=== PATIENT | male | born 1965 | race American Indian/Alaskan Native ===

== ENCOUNTER 2017-12-11 15:11 | Emergency (ER) | payer SELFPAY ==
[2017-12-11 15:37] VITALS: BP 146/98
[2017-12-11] MEDS ORDERED: ZOFRAN ODT PO ONE (15:59)
--- NOTE | 2017-12-11 16:05 | Emergency Department Report ---
Vomiting/Diarrhea - HPI Chief Complaint: Nausea/Vomiting/Diarrhea Stated Complaint: VOMITING Time Seen by Provider: 12/11/17 15:52 Duration: 1 Day Severity: mild Nausea/Vomiting Severity: Mild Diarrhea Severity: None Pain Severity: None Symptoms: Yes Able to Tolerate Fluids, No Watery Diarrhea, No Bloody diarrhea, No Fever, No Recent Unusual Foods, No Recent Untreated Water, No Recent use of Antibiotics, No Family w/ Similar Symptoms, No Contacts w/ Similar Symptoms, No Rash, No Hematuria, No Recent URI Symptoms Other History: This is a 51-year-old male nontoxic, well nourished in appearance , no acute signs of distress presents to the ED with c/o of nausea and vomiting x1 day. Patient stated he was eating seafood last night and then developed these symptoms. Patient stated that when he eats seafood he develops this. Patient denies any abdominal pain or back pain. Patient stated he was at work and went home today and had chicken soup and chintan arline and stated symptoms has resolved. Patient stated last vomit which consistent with food was this morning at work. Patient deneis any chest pain, shortness of breath, bowel pain, numbness, tingling, headache, stiff neck, back pain or urinary symptoms. Patient denies any allergies or significant past medical history. ED Review of Systems ROS: Stated complaint: VOMITING Other details as noted in HPI Constitutional: denies: chills, fever Eyes: denies: eye pain, eye discharge, vision change ENT: denies: ear pain, throat pain Respiratory: denies: cough, shortness of breath, wheezing Cardiovascular: denies: chest pain, palpitations Endocrine: no symptoms reported Gastrointestinal: nausea, vomiting. denies: abdominal pain, diarrhea, constipation Genitourinary: denies: urgency, dysuria Musculoskeletal: denies: back pain, joint swelling, arthralgia Skin: denies: rash, lesions Neurological: denies: headache, weakness, paresthesias Psychiatric: denies: anxiety, depression Hematological/Lymphatic: denies: easy bleeding, easy bruising ED Past Medical Hx - Past Medical History Additional medical history: pneumonia - Social History Smoking Status: Current Every Day Smoker Substance Use Type: Alcohol - Medications Home Medications: Home Medications Medication Instructions Recorded Confirmed Last Taken Type HYDROcodone/APAP 5-325 [[place] 1 each PO Q6HR PRN #10 tablet 05/31/16 Unknown Rx 5/325] Ibuprofen [Motrin] 600 mg PO Q8H PRN #20 tablet 05/31/16 Unknown Rx Azithromycin [Zithromax Z-ROSALVA] 250 mg PO DAILY #6 tablet 12/11/17 Unknown Rx Ondansetron [Zofran Odt] 4 mg PO Q8H PRN #10 tab.rapdis 12/11/17 Unknown Rx Vomiting Diarrhea Exam - Exam General: Vital signs noted. No distress. Alert and acting appropriately. GENERAL: The patient is a well-developed, well-nourished in no apparent distress. Patient is alert and acting appropriately for age. Alert and oriented 3, no apparent distress, normal gait, atraumatic. HEENT: Head is normocephalic and atraumatic. PERRL, Extraocular muscles are intact. Pupils are equal, round, and reactive to light and accommodation. Nares appeared normal. Mouth is well hydrated and without lesions. Mucous membranes are moist. Posterior pharynx clear of any exudate or lesions. Mouth is well hydrated and without lesions. Tonsils not erythematous or swollen. Uvula midline. Tongue elevated. Mucous members are moist. Posterior pharynx clear, no exudate or lesions. Patent airways. NECK: Supple. No carotid bruits. No lymphadenopathy or thyromegaly.nontender. No meningitic signs are noted. LUNGS: Clear to auscultation. Non labor breathing. No intercostal retractions. Symmetrical with respiration, no wheezing, no rales, or crackles. HEART: Regular rate and rhythm without murmur, rubs or gallops. No reproducible. S1, S2 present, regular rate and rhythm without murmur, no rubs, no gallops. ABDOMEN: Soft, nontender, and nondistended. Positive bowel sounds. No hepatosplenomegaly was noted. No guarding or rebound tenderness, negative epigastric bruit. Negative psoas sign, negative rashid sign, negative McBurneys sign EXTREMITIES: Without any cyanosis, clubbing, rash, lesions or edema. Peripheral pulses intact. Capillary refill less than 2 seconds. Full range of motion bilaterally. NEUROLOGIC: Cranial nerves II through XII are grossly intact. Alert and oriented x 3. Normal gait. Symmetrical strength and sensation. Reflexes 2+ throughout. Cerebellar testing normal. GCS score of 15. PSYCHIATRIC: Normal affect with no suicidal or homicidal ideations. HEENT: Yes Moist Mucous Membranes, No Pharyngeal Erythema, No Pharyngeal Exudates, No Rhinorrhea, No Conjuctival Injection, No Frontal Tenderness, No Maxillary Tenderness Neck: No Adenopathy, No Rigidity Lungs: Yes Clear Lung Sounds, Yes Good Air Exchange, No Wheezes, No Stridor, No Cough, No Nasal Flaring, No Retractions, No Use of Accessory Muscles Heart exam: Regular: Yes, Murmur: No, Tachycardia: No Abdomen: Tenderness: No, Peritoneal Signs: No, Distention: No, Hyperactive Bowel sounds: No Skin exam: Rash: No, Edema: No, Normal turgor: Yes Neurologic: Alert and oriented, no deficits. Musculoskeletal: Unremarkable. ED Course Vital Signs 12/11/17 15:34 Temperature 99.3 F Pulse Rate 110 H Respiratory 18 Rate Blood Pressure 146/98 O2 Sat by Pulse 98 Oximetry - Reevaluation(s) Reevaluation #1: 12/11/17 16:04 Patient is speaking in full sentences with no signs of distress noted. ED Medical Decision Making - Lab Data Result diagrams: 12/11/17 16:34 12/11/17 16:34 - Medical Decision Making This is a 51-year-old male that presents with nausea and vomiting. Patient stable was examined by me. X-ray series of abdomen has been obtained and dictated by the radiologist. Patient is notified of the x-ray report with no question by the patient. Labs are obtained. He received Zofran and a by mouth challenge has been obtained and patient tolerated well with no nausea or vomiting. Vital signs are stable. Upon examination there is no abdominal tenderness or distention. Normal bowel sounds. Patient is discharged with Zofran. Patient was instructed to Follow-up with a primary care doctor in 3-5 days or if symptoms worsen and continue return to emergency room as soon as possible. At time of discharge, the patient does not seem toxic or ill in appearance. No acute signs of distress noted. Patient agrees to discharge treatment plan of care. No further questions noted by the patient. Critical care attestation.: If time is entered above; I have spent that time in minutes in the direct care of this critically ill patient, excluding procedure time. ED Disposition Clinical Impression: Nausea & vomiting Qualifiers: Vomiting type: unspecified Vomiting Intractability: non-intractable Qualified Code(s): R11.2 - Nausea with vomiting, unspecified Disposition: DC-01 TO HOME OR SELFCARE Is pt being admited?: No Does the pt Need Aspirin: No Condition: Stable Instructions: Ondansetron (By mouth), Acute Nausea and Vomiting (ED) Additional Instructions: Follow-up with a primary care doctor in 3-5 days or if symptoms worsen and continue return to emergency room as soon as possible. Prescriptions: Azithromycin [Zithromax Z-ROSALVA] 250 mg PO DAILY #6 tablet Ondansetron [Zofran Odt] 4 mg PO Q8H PRN #10 tab.rapdis PRN Reason: nausea Referrals: PRIMARY CARE,MD [Primary Care Provider] - 3-5 Days MARIA ELENA READ MD [Staff Physician] - 3-5 Days [facility] [Outside] - 3-5 Days [facility] [Outside] - 3-5 Days Forms: Work/School Release Form(ED)
[2017-12-11 17:06] LABS: Basophils # (Auto) 0.1 K/mm3 (0.0-0.1); Basophils % (Auto) 0.7 % (0.0-1.8); Eosinophils # (Auto) 0.2 K/mm3 (0.0-0.4); Eosinophils % (Auto) 2.5 % (0.0-4.3); Hematocrit 42.9 % (35.5-45.6); Hemoglobin 14.4 gm/dl (11.8-15.2); Lymphocytes # (Auto) 1.4 K/mm3 (1.2-5.4); Lymphocytes % (Auto) 17.4 % (13.4-35.0); Mean Corpuscular HGB Conc 34 % (32-34); Mean Corpuscular Hemoglobin 33 pg (28-32); Mean Corpuscular Volume 99 fl (84-94); Mean Platelet Volume 5.9 fl (6-12); Monocytes # (Auto) 1.1 K/mm3 (0.0-0.8); Monocytes % (Auto) 13.8 % (0.0-7.3); Platelet Count 421 K/mm3 (140-440); Red Blood Count 4.32 M/mm3 (3.65-5.03); Red Cell Distribution Width 17.4 % (13.2-15.2)
[2017-12-11 17:11] LABS: BUN/Creatinine Ratio 8; Blood Urea Nitrogen 5 mg/dL (9-20); Hemolysis Index 8
--- NOTE | 2017-12-11 17:36 | XRay Report ---
FINAL REPORT EXAM: XR ABD SERIES W CXR 1V HISTORY: abd pain TECHNIQUE: PA view of the chest and supine and erect views of the abdomen PRIORS: None. FINDINGS: Chest: There is alveolar consolidation in the right upper lobe. I am uncertain whether this represents infection or mass. There is extensive pleural thickening in the right apex extending to the lateral upper lung. Underlying interstitial prominence in the lung bases is noted. Cardiac and mediastinal silhouettes are unremarkable. Bony structures are intact. Abdomen: The bowel gas pattern is nonspecific. No free air is identified. Soft tissues have no evidence for mass shadows or calcifications. The bony structures are intact. IMPRESSION: 1. Alveolar consolidation right upper lobe suspected to be infection although mass is included in the differential. Extensive pleural thickening or loculated pleural fluid in the right apex and lateral upper right lung 2. Nonspecific, nonobstructive bowel gas pattern with no acute process noted.
== END 2017-12-11 17:49 | disposition home or self-care (01) ==
LOC: ED 15:11
DX: R11.2 Nausea with vomiting, unspecified (principal); F17.200 Nicotine dependence, unspecified, uncomplicated
CPT/HCPCS: 36415; 74022; 80048; 85025; 99283; Q0162

== ENCOUNTER 2018-04-17 18:53 | Inpatient (IN) | payer OTHER ==
[2018-04-17] MEDS ORDERED: NACL 0.9% 1000 ML 2,500 ML IV ONE (19:31)
[2018-04-17] MEDS: NACL 0.9% 1000 ML 1,000 ML IV ONE ×2 (19:35→19:55)
[2018-04-17] MEDS ORDERED: LEVAQUIN 500MG/100ML 500 MG/100 ML BAG IV ONE (19:52)
[2018-04-17] MEDS ORDERED: ZOFRAN IV ONE (19:53)
[2018-04-17] MEDS ORDERED: MORPHINE IV ONE (19:53)
[2018-04-17] MEDS ORDERED: MORPHINE ONE ×2 (20:01→20:02)
--- NOTE | 2018-04-17 20:19 | Emergency Department Report ---
HPI - General Chief Complaint: Chest Pain Time Seen by Provider: 04/17/18 19:32 - HPI HPI: The patient is a 52-year-old male who presents for evaluation of chest pain and cough. The patient reports chest pain with coughing for the past 2 days. He states his his pain is left-sided in location, aching in quality, exacerbated with coughing, improved at rest. The patient denies neck pain or neck stiffness , parasthesias, dyspnea, hemoptysis, palpitations, dizziness, syncope, unilateral leg swelling, calf muscle pain. ED Past Medical Hx - Past Medical History Previous Medical History?: Yes Additional medical history: pneumonia - Social History Smoking Status: Current Every Day Smoker Substance Use Type: Alcohol - Medications Home Medications: Home Medications Medication Instructions Recorded Confirmed Last Taken Type HYDROcodone/APAP 5-325 [[place] 1 each PO Q6HR PRN #10 tablet 05/31/16 Unknown Rx 5/325] Ibuprofen [Motrin] 600 mg PO Q8H PRN #20 tablet 05/31/16 Unknown Rx Azithromycin [Zithromax Z-ROSALVA] 250 mg PO DAILY #6 tablet 12/11/17 Unknown Rx Ondansetron [Zofran Odt] 4 mg PO Q8H PRN #10 tab.rapdis 12/11/17 Unknown Rx ED Review of Systems ROS: Stated complaint: CHEST PAIN Other details as noted in HPI Constitutional: denies: fever ENT: denies: throat or neck pain Respiratory: reports cough denies: shortness of breath Cardiovascular: denies: chest pain Endocrine: denies unexplained weight loss or gain Gastrointestinal: denies: abdominal pain, nausea Genitourinary: denies: dysuria Musculoskeletal: denies: leg swelling Skin: denies: rash Neurological: denies: headache Hematological/Lymphatic: denies: easy bleeding or easy bruising Psych: denies sadness or hopelessness Physical Exam - Physical Exam Vital Signs: Vital Signs 04/17/18 04/17/18 04/17/18 19:14 19:34 19:45 Temperature 100.4 F H Pulse Rate 114 H 114 H 107 H Respiratory 26 H 35 H 57 H Rate Blood Pressure 137/84 133/89 O2 Sat by Pulse 94 94 Oximetry Physical Exam: General: well-nourished, well-developed, no acute distress Head: Normocephalic, atraumatic Eyes: normal sclera ENT: Nasal congestion present Neck: trachea midline, neck supple, No neck stiffness, no cervical adenopathy Respiratory: Breath sounds equal bilaterally, no wheezing, rales, or rhonchi Cardio: S1 and S2 present, no murmurs, rubs, gallops, capillary refill is brisk Abdomen: Normoactive bowel sounds, soft abdomen, no rigidity, no guarding or rebound tenderness Chest WALL/Back: No tenderness to palpation of the chest wall, no bruising no CVA tenderness with percussion Musc: No pitting edema Skin: No rash Neuro: no facial drooping, normal speech Psych: Normal affect ED Course Vital Signs 04/17/18 04/17/18 04/17/18 19:14 19:34 19:45 Temperature 100.4 F H Pulse Rate 114 H 114 H 107 H Respiratory 26 H 35 H 57 H Rate Blood Pressure 137/84 133/89 O2 Sat by Pulse 94 94 Oximetry ED Medical Decision Making - Lab Data Result diagrams: 04/17/18 19:34 04/17/18 21:38 - Medical Decision Making The patient was seen and examined by myself. The patient is placed on a phototypesetting equipment monitor and continuous pulse ox. On initial evaluation, the patient was found to be in no distress nontoxic in overall appearance, although with low- grade temperature and tachycardic. EKG was negative for findings suggestive of acute cardiac infarct. Labs and imaging are obtained. Chest x-ray exhibits left lower lobe and right upper lobe infiltrates with associated bibasilar pleural effusions. The patient is given normal saline fluid bolus for treatment of his dehydration, Tylenol for his fever, cough medicine, and IV Levaquin for treatment of his suspected infection. Lab results revealed elevated WBC 17. The on-call hospitalist service was contacted. They agreed to admit the patient for further treatment and close monitoring. The ED admit order was placed. The patient was admitted in guarded condition. Critical care attestation.: If time is entered above; I have spent that time in minutes in the direct care of this critically ill patient, excluding procedure time. ED Disposition Clinical Impression: Dehydration, Acute chest pain Pneumonia Qualifiers: Pneumonia type: due to unspecified organism Laterality: bilateral Lung location : lower lobe of lung Qualified Code(s): J18.1 - Lobar pneumonia, unspecified organism Disposition: DC-09 OP ADMIT IP TO THIS HOSP Is pt being admited?: Yes Does the pt Need Aspirin: Yes Condition: Serious Instructions: Chest Pain (ED), Bacterial Pneumonia (ED) Referrals: PRIMARY CARE, [Primary Care Provider] - 3-5 Days Time of Disposition: 21:15
[2018-04-17 20:25] LABS: Basophils % (Auto) 0.2 % (0.0-1.8); Eosinophils % (Auto) 0.1 % (0.0-4.3); Hematocrit 50.5 % (35.5-45.6); Hemoglobin 17.2 gm/dl (11.8-15.2); Lymphocytes # (Auto) 0.9 K/mm3 (1.2-5.4); Lymphocytes % (Auto) 5.5 % (13.4-35.0); Mean Corpuscular HGB Conc 34 % (32-34); Mean Corpuscular Hemoglobin 36 pg (28-32); Mean Corpuscular Volume 106 fl (84-94); Monocytes # (Auto) 2.2 K/mm3 (0.0-0.8); Platelet Count 433 K/mm3 (140-440); Red Blood Count 4.78 M/mm3 (3.65-5.03)
[2018-04-17] MEDS ORDERED: TYLENOL PO ONE (20:46)
[2018-04-17] MEDS ORDERED: BABY ASPIRIN PO ONE (21:16)
--- NOTE | 2018-04-17 21:19 | XRay Report ---
FINAL REPORT EXAM: XR CHEST 1V AP HISTORY: chest pain TECHNIQUE: Frontal portable view of the chest Comparison: Chest x-ray dated December 11, 2017 FINDINGS: There continues to be diffuse bilateral prominence of the interstitial markings with patchy areas of bilateral pulmonary consolidation. The degree of pulmonary consolidation in the left lung base has increased in the interval. There is no evidence of pneumothorax. There continues to be evidence of a loculated pleural fluid collection in the right lung apex which is decreased in size in the interval. The cardiomediastinal silhouette is normal in appearance. The bony structures are unremarkable. IMPRESSION: 1. Persistent bilateral interstitial and airspace process with interval increase in airspace process left lung base. 2. Persistent loculated pleural effusion right lung apex which has decreased in size in the interval. If further imaging is required, CT chest may be helpful.
[2018-04-17 22:07] LABS: BUN/Creatinine Ratio 13; Blood Urea Nitrogen 8 mg/dL (9-20); Calcium 7.4 mg/dL (8.4-10.2)
[2018-04-17 22:08] LABS: Alanine Aminotransferase 5 units/L (7-56); Albumin 2.9 g/dL (3.9-5); Hemolysis Index 41; Lipase 30 units/L (13-60)
[2018-04-17] MEDS ORDERED: ZOFRAN IV PRN (23:02)
[2018-04-17] MEDS ORDERED: SODIUM CHLORIDE FLUSH SYRINGE 10 ML IV PRN (23:02)
[2018-04-17] MEDS ORDERED: TYLENOL PO PRN (23:02)
[2018-04-17] MEDS ORDERED: PROVENTIL IH PRN (23:02)
--- NOTE | 2018-04-17 23:08 | History and Physical Report ---
History of Present Illness Date of examination: 04/17/18 History of present illness: 52 -year-old man with a known medical history calcium emergency room with complaint of cough productive of yellow phlegm, fever. Complaining of pain in his left chest with breathing and coughing. Denies any weight loss. He was treated for pneumonia in November for which she completed antibiotics Review of systems Constitutional: no weight loss, chills, fever Ears, eyes, nose, mouth and throat: no nasal congestion, no nasal discharge, no sinus pressure, no vision change, no red eye. Neck: No neck pain or rigidity. Cardiovascular: no chest pain, palpitations Respiratory:+cough, shortness of breath Gastrointestinal: no abdominal pain hematochezia Genitourinary : no frequency , no hematuria Musculoskeletal: no joint swelling or muscle ache Integumentary: no rash, no pruritis Neurological: no parathesias, no numbness, no focal weakness Endocrine: no cold or heat intolerance, no polyuria or polydipsia Hematologic/Lymphatic: no easy bruising, no easy bleeding, no gland swelling Allergic/Immunologic: no urticaria, no angioedema. PAST MEDICAL HISTORY: None PAST SURGICAL HISTORY: None SOCIAL HISTORY:+ alcohol, no drugs, smokes half pack a day FAMILY HISTORY: Hypertension Medications and Allergies Allergies Allergy/AdvReac Type Severity Reaction Status Date / Time No Known Allergies Allergy Unverified 05/31/16 10:08 Home Medications Medication Instructions Recorded Confirmed Last Taken Type HYDROcodone/APAP 5-325 [[place] 1 each PO Q6HR PRN #10 tablet 05/31/16 Unknown Rx 5/325] Ibuprofen [Motrin] 600 mg PO Q8H PRN #20 tablet 05/31/16 Unknown Rx Azithromycin [Zithromax Z-ROSALVA] 250 mg PO DAILY #6 tablet 12/11/17 Unknown Rx Ondansetron [Zofran Odt] 4 mg PO Q8H PRN #10 tab.rapdis 12/11/17 Unknown Rx Active Meds: Active Medications Acetaminophen (Tylenol) 650 mg PO Q4H PRN PRN Reason: Pain MILD(1-3)/Fever >100.5/JORGE Albuterol (Proventil) 2.5 mg IH Q3HRT PRN PRN Reason: Shortness Of Breath Azithromycin 500 mg/ Sodium (Chloride) 250 mls @ 250 mls/hr IV Q24H GABY Exam - Physical Exam Narrative exam: Gen. appearance: Patient lying in bed, no apparent distress HEENT: Normocephalic, atraumatic, pupils equally round and reactive to light, extraocular movement intact, and no sclericterus,. No JVD or thyromegaly or nodule,neck supple, no carotid bruit ,mucous membranes moist, no exudate or erythema Heart: S1, S2, regular rate and rhythm Lungs: Crackles bilaterally, breathing comfortable Abdomen: Positive bowel sounds, non-tender, nondistended, no organomegaly Extremity:no edema cyanosis, clubbing Skin: no rash, dry, warm Neuro: Oriented 3, cranial nerves II-12 intact, speech is fluent, motor and sensory intact - Constitutional Vitals: Temp Pulse Resp BP Pulse Ox 100.4 F H 107 H 57 H 133/89 94 04/17/18 19:14 04/17/18 19:45 04/17/18 19:45 04/17/18 19:45 04/17/18 19:45 Results - Labs CBC & Chem 7: 04/17/18 19:34 04/17/18 21:38 Labs: Abnormal lab results 04/17/18 04/17/18 Range/Units 19:34 21:38 WBC 17.3 H (4.5-11.0) K/mm3 Hgb 17.2 H (11.8-15.2) gm/dl Hct 50.5 H (35.5-45.6) % MCV 106 H (84-94) fl MCH 36 H (28-32) pg RDW 20.0 H (13.2-15.2) % Lymph % (Auto) 5.5 L (13.4-35.0) % [place] % (Auto) 13.0 H (0.0-7.3) % Lymph # 0.9 L (1.2-5.4) K/mm3 [place] # 2.2 H (0.0-0.8) K/mm3 Seg Neutrophils % 81.2 H (40.0-70.0) % Seg Neutrophils # 14.0 H (1.8-7.7) K/mm3 Sodium 135 L (137-145) mmol/L Potassium 3.3 L (3.6-5.0) mmol/L BUN 8 L (9-20) mg/dL Creatinine 0.6 L (0.8-1.5) mg/dL Glucose 105 H (75-100) mg/dL Calcium 7.4 L (8.4-10.2) mg/dL Total Bilirubin 1.50 H (0.1-1.2) mg/dL ALT 5 L (7-56) units/L Albumin 2.9 L (3.9-5) g/dL - Imaging and Cardiology Chest x-ray: image reviewed Abdominal x-ray: report reviewed Assessment and Plan Assessment Sepsis Bilateral community-acquired pneumonia Plan Admit medicine Start IV Rocephin, Zithromax and follow cultures Obtain CAT scan of the chest DVT prophylaxis
[2018-04-18] MEDS: ZITHROMAX 500 MG in NACL 0.9% 250ML 250 ML IV SCH ×2 (00:09→22:13)
[2018-04-18] MEDS: ROCEPHIN/NS 1 GM/50 ML 1 GM/50 ML BAG IV SCH ×2 (00:09→22:14)
[2018-04-18] MEDS ORDERED: BABY ASPIRIN ONE (00:16)
--- NOTE | 2018-04-18 00:16 | Cat Scan Report ---
FINAL REPORT EXAM: CT CHEST W CON HISTORY: persistent pna TECHNIQUE: Routine axial imaging was obtained of the thorax following the intravenous injection of 100 cc of Omnipaque 350. Sagittal and coronal reconstructions were reviewed. FINDINGS: The lungs reveal generalized emphysematous changes. There is bullous changes in the right apex with patchy airspace disease and pleural thickening in the right apex. The lungs reveal extensive infiltrates throughout both lower lobes and to lesser extent in the lingula and right middle lobe. Underlying congestion cannot be excluded. The heart size is normal. Pericardial fluid is not seen. The thoracic aorta is normal in caliber. There is bilateral mild hilar adenopathy. Additional subcarinal lymphadenopathy is also noted. Pleural fluid is not seen. In the upper abdomen the adrenal glands appear normal. At the thoracic inlet the thyroid gland appears normal. The skeletal structures do not show any acute changes. IMPRESSION: COPD with infiltrates in both lower lobes and to lesser extent in the lingula and right middle lobe compatible with pneumonia. Localized airspace disease with bullous changes in the right apex also noted. Bilateral hilar and subcarinal space lymphadenopathy. No evidence of pleural effusion. Underlying congestion cannot be excluded.
[2018-04-18 05:37] LABS: Bilirubin,Urine NEG (Negative); Color,Urine Yellow (Yellow)
[2018-04-18 05:38] LABS: Blood,Urine NEG (Negative); Mucus,Urine FEW /HPF; Protein,Urine <15 mg/dL mg/dL (Negative); Urobilinogen,Urine < 2.0 mg/dL (<2.0)
[2018-04-18 06:42] LABS: Basophils % (Auto) 0.2 % (0.0-1.8); Eosinophils # (Auto) 0.1 K/mm3 (0.0-0.4); Eosinophils % (Auto) 0.4 % (0.0-4.3); Hematocrit 46.6 % (35.5-45.6); Hemoglobin 15.6 gm/dl (11.8-15.2); Lymphocytes # (Auto) 1.3 K/mm3 (1.2-5.4); Lymphocytes % (Auto) 9.1 % (13.4-35.0); Mean Corpuscular HGB Conc 34 % (32-34); Mean Corpuscular Hemoglobin 36 pg (28-32); Mean Corpuscular Volume 107 fl (84-94); Monocytes % (Auto) 14.3 % (0.0-7.3); Platelet Count 360 K/mm3 (140-440); Red Blood Count 4.34 M/mm3 (3.65-5.03)
[2018-04-18 06:58] LABS: BUN/Creatinine Ratio 9; Blood Urea Nitrogen 6 mg/dL (9-20); Calcium 8.1 mg/dL (8.4-10.2); Hemolysis Index 4
[2018-04-18] MEDS ORDERED: LOVENOX SUB-Q SCH (10:00)
[2018-04-18] MEDS: PERCOCET 5/325 PO PRN ×2 (10:11→18:51)
[2018-04-18] MEDS: SODIUM CHLORIDE FLUSH SYRINGE 10 ML IV SCH ×2 (10:12→22:14)
[2018-04-18] MEDS: LOVENOX SUB-Q SCH (10:12)
[2018-04-18] MEDS ORDERED: PNEUMOVAX 23 IM ONE (12:00)
--- NOTE | 2018-04-18 12:13 | Progress Note ---
Assessment and Plan Assessment and plan: Sepsis. Etiology secondary to pneumonia. We will follow-up blood and sputum cultures. Continue IV antibiotics. Follow lactate levels Bilateral community-acquired pneumonia. Continue IV antibiotics and follow-up serial chest x-ray. Tobacco abuse. Patient will be counseled on tobacco cessation. History Interval history: No new issues overnight. Hospitalist Physical - Constitutional Vitals: Temp Pulse Resp BP Pulse Ox 98.5 F 94 H 20 138/90 96 04/18/18 05:47 04/18/18 05:47 04/18/18 10:11 04/18/18 05:47 04/18/18 05:47 General appearance: Present: no acute distress, well-nourished - EENT Eyes: Present: PERRL, EOM intact ENT: hearing intact, clear oral mucosa, dentition normal - Neck Neck: Present: supple, normal ROM - Respiratory Respiratory effort: normal Respiratory: bilateral: rhonchi - Cardiovascular Rhythm: regular Heart Sounds: Present: S1 & S2. Absent: gallop, rub - Extremities Extremities: no ischemia, No edema, Full ROM - Abdominal General gastrointestinal: soft, non-tender, non-distended, normal bowel sounds - Integumentary Integumentary: Present: clear, warm, dry - Neurologic Neurologic: CNII-XII intact, moves all extremities Results - Labs CBC & Chem 7: 04/18/18 06:06 04/18/18 06:06 Labs: Laboratory Last Values WBC 14.3 K/mm3 (4.5-11.0) H 04/18/18 06:06 RBC 4.34 M/mm3 (3.65-5.03) 04/18/18 06:06 Hgb 15.6 gm/dl (11.8-15.2) H 04/18/18 06:06 Hct 46.6 % (35.5-45.6) H 04/18/18 06:06 MCV 107 fl (84-94) H 04/18/18 06:06 MCH 36 pg (28-32) H 04/18/18 06:06 MCHC 34 % (32-34) 04/18/18 06:06 RDW 20.0 % (13.2-15.2) H 04/18/18 06:06 Plt Count 360 K/mm3 (140-440) 04/18/18 06:06 Lymph % (Auto) 9.1 % (13.4-35.0) L 04/18/18 06:06 [place] % (Auto) 14.3 % (0.0-7.3) H 04/18/18 06:06 Eos % (Auto) 0.4 % (0.0-4.3) 04/18/18 06:06 Baso % (Auto) 0.2 % (0.0-1.8) 04/18/18 06:06 Lymph # 1.3 K/mm3 (1.2-5.4) 04/18/18 06:06 [place] # 2.0 K/mm3 (0.0-0.8) H 04/18/18 06:06 Eos # 0.1 K/mm3 (0.0-0.4) 04/18/18 06:06 Baso # 0.0 K/mm3 (0.0-0.1) 04/18/18 06:06 Seg Neutrophils % 76.0 % (40.0-70.0) H 04/18/18 06:06 Seg Neutrophils # 10.8 K/mm3 (1.8-7.7) H 04/18/18 06:06 Sodium 135 mmol/L (137-145) L 04/18/18 06:06 Potassium 3.0 mmol/L (3.6-5.0) L 04/18/18 06:06 Chloride 99.6 mmol/L (98-107) 04/18/18 06:06 Carbon Dioxide 26 mmol/L (22-30) 04/18/18 06:06 Anion Gap 12 mmol/L 04/18/18 06:06 BUN 6 mg/dL (9-20) L 04/18/18 06:06 Creatinine 0.7 mg/dL (0.8-1.5) L 04/18/18 06:06 Estimated GFR > 60 ml/min 04/18/18 06:06 BUN/Creatinine Ratio 9 % 04/18/18 06:06 Glucose 95 mg/dL (75-100) 04/18/18 06:06 Lactic Acid 1.30 mmol/L (0.7-2.0) 04/17/18 19:34 Calcium 8.1 mg/dL (8.4-10.2) L 04/18/18 06:06 Total Bilirubin 1.50 mg/dL (0.1-1.2) H 04/17/18 21:38 AST 14 units/L (5-40) 04/17/18 21:38 ALT 5 units/L (7-56) L 04/17/18 21:38 Alkaline Phosphatase 61 units/L (35-129) 04/17/18 21:38 Troponin T < 0.010 ng/mL (0.00-0.029) 04/17/18 21:38 NT-Pro-B Natriuret Pep 156.6 pg/mL (0-900) 04/17/18 21:38 Total Protein 6.3 g/dL (6.3-8.2) 04/17/18 21:38 Albumin 2.9 g/dL (3.9-5) L 04/17/18 21:38 Albumin/Globulin Ratio 0.9 % 04/17/18 21:38 Lipase 30 units/L (13-60) 04/17/18 21:38 Urine Color Yellow (Yellow) 04/18/18 05:25 Urine Turbidity Clear (Clear) 04/18/18 05:25 Urine pH 6.0 (5.0-7.0) 04/18/18 05:25 Ur Specific [place] 1.040 (1.003-1.030) H 04/18/18 05:25 Urine Protein <15 mg/dl mg/dL (Negative) 04/18/18 05:25 Urine Glucose (UA) Neg mg/dL (Negative) 04/18/18 05:25 Urine Ketones Tr mg/dL (Negative) 04/18/18 05:25 Urine Blood Neg (Negative) 04/18/18 05:25 Urine Nitrite Neg (Negative) 04/18/18 05:25 Urine Bilirubin Neg (Negative) 04/18/18 05:25 Urine Urobilinogen < 2.0 mg/dL (<2.0) 04/18/18 05:25 Ur Leukocyte Esterase Neg (Negative) 04/18/18 05:25 Urine WBC (Auto) 1.0 /HPF (0.0-6.0) 04/18/18 05:25 Urine RBC (Auto) 2.0 /HPF (0.0-6.0) 04/18/18 05:25 Urine Mucus Few /HPF 04/18/18 05:25
[2018-04-18] MEDS: NACL 0.9% 1000 ML 1,000 ML IV SCH (16:16)
[2018-04-19] MEDS: TESSALON PERLES PO PRN ×3 (05:02→21:22)
[2018-04-19 05:39] LABS: Basophils % (Auto) 0.4 % (0.0-1.8); Eosinophils # (Auto) 0.2 K/mm3 (0.0-0.4); Eosinophils % (Auto) 1.8 % (0.0-4.3); Hematocrit 46.5 % (35.5-45.6); Hemoglobin 15.9 gm/dl (11.8-15.2); Lymphocytes # (Auto) 0.9 K/mm3 (1.2-5.4); Lymphocytes % (Auto) 6.8 % (13.4-35.0); Mean Corpuscular HGB Conc 34 % (32-34); Mean Corpuscular Hemoglobin 36 pg (28-32); Mean Corpuscular Volume 107 fl (84-94); Monocytes # (Auto) 1.7 K/mm3 (0.0-0.8); Platelet Count 379 K/mm3 (140-440); Red Blood Count 4.36 M/mm3 (3.65-5.03); Red Cell Distribution Width 19.7 % (13.2-15.2)
[2018-04-19 05:56] LABS: BUN/Creatinine Ratio 10; Blood Urea Nitrogen 5 mg/dL (9-20); Hemolysis Index 3
[2018-04-19] MEDS: NACL 0.9% 1000 ML 1,000 ML IV SCH ×2 (07:27→23:12)
--- NOTE | 2018-04-19 09:41 | Progress Note ---
Assessment and Plan Assessment and plan: Sepsis. Etiology secondary to pneumonia. We will follow-up blood and sputum cultures. Continue IV antibiotics. Follow lactate levels Bilateral community-acquired pneumonia. Continue IV antibiotics and follow-up serial chest x-ray. Tobacco abuse. Patient will be counseled on tobacco cessation. History Interval history: No new issues overnight. Hospitalist Physical - Constitutional Vitals: Temp Pulse Resp BP Pulse Ox 99.3 F 91 H 20 137/85 98 04/19/18 06:01 04/19/18 06:01 04/19/18 06:01 04/19/18 06:01 04/19/18 06:01 General appearance: Present: no acute distress, well-nourished - EENT Eyes: Present: PERRL, EOM intact ENT: hearing intact, clear oral mucosa, dentition normal - Neck Neck: Present: supple, normal ROM - Respiratory Respiratory effort: normal Respiratory: bilateral: CTA - Cardiovascular Rhythm: regular Heart Sounds: Present: S1 & S2. Absent: gallop, rub - Extremities Extremities: no ischemia, No edema, Full ROM - Abdominal General gastrointestinal: soft, non-tender, non-distended, normal bowel sounds - Integumentary Integumentary: Present: clear, warm, dry - Neurologic Neurologic: CNII-XII intact, moves all extremities Results - Labs CBC & Chem 7: 04/19/18 05:20 04/19/18 05:20 Labs: Laboratory Last Values WBC 13.2 K/mm3 (4.5-11.0) H 04/19/18 05:20 RBC 4.36 M/mm3 (3.65-5.03) 04/19/18 05:20 Hgb 15.9 gm/dl (11.8-15.2) H 04/19/18 05:20 Hct 46.5 % (35.5-45.6) H 04/19/18 05:20 MCV 107 fl (84-94) H 04/19/18 05:20 MCH 36 pg (28-32) H 04/19/18 05:20 MCHC 34 % (32-34) 04/19/18 05:20 RDW 19.7 % (13.2-15.2) H 04/19/18 05:20 Plt Count 379 K/mm3 (140-440) 04/19/18 05:20 Lymph % (Auto) 6.8 % (13.4-35.0) L 04/19/18 05:20 [place] % (Auto) 13.0 % (0.0-7.3) H 04/19/18 05:20 Eos % (Auto) 1.8 % (0.0-4.3) 04/19/18 05:20 Baso % (Auto) 0.4 % (0.0-1.8) 04/19/18 05:20 Lymph # 0.9 K/mm3 (1.2-5.4) L 04/19/18 05:20 [place] # 1.7 K/mm3 (0.0-0.8) H 04/19/18 05:20 Eos # 0.2 K/mm3 (0.0-0.4) 04/19/18 05:20 Baso # 0.0 K/mm3 (0.0-0.1) 04/19/18 05:20 Seg Neutrophils % 78.0 % (40.0-70.0) H 04/19/18 05:20 Seg Neutrophils # 10.3 K/mm3 (1.8-7.7) H 04/19/18 05:20 Sodium 137 mmol/L (137-145) 04/19/18 05:20 Potassium 3.3 mmol/L (3.6-5.0) L 04/19/18 05:20 Chloride 100.8 mmol/L (98-107) 04/19/18 05:20 Carbon Dioxide 26 mmol/L (22-30) 04/19/18 05:20 Anion Gap 14 mmol/L 04/19/18 05:20 BUN 5 mg/dL (9-20) L 04/19/18 05:20 Creatinine 0.5 mg/dL (0.8-1.5) L 04/19/18 05:20 Estimated GFR > 60 ml/min 04/19/18 05:20 BUN/Creatinine Ratio 10 % 04/19/18 05:20 Glucose 91 mg/dL (75-100) 04/19/18 05:20 Lactic Acid 1.30 mmol/L (0.7-2.0) 04/17/18 19:34 Calcium 8.0 mg/dL (8.4-10.2) L 04/19/18 05:20 Total Bilirubin 1.50 mg/dL (0.1-1.2) H 04/17/18 21:38 AST 14 units/L (5-40) 04/17/18 21:38 ALT 5 units/L (7-56) L 04/17/18 21:38 Alkaline Phosphatase 61 units/L (35-129) 04/17/18 21:38 Troponin T < 0.010 ng/mL (0.00-0.029) 04/17/18 21:38 NT-Pro-B Natriuret Pep 156.6 pg/mL (0-900) 04/17/18 21:38 Total Protein 6.3 g/dL (6.3-8.2) 04/17/18 21:38 Albumin 2.9 g/dL (3.9-5) L 04/17/18 21:38 Albumin/Globulin Ratio 0.9 % 04/17/18 21:38 Lipase 30 units/L (13-60) 04/17/18 21:38 Urine Color Yellow (Yellow) 04/18/18 05:25 Urine Turbidity Clear (Clear) 04/18/18 05:25 Urine pH 6.0 (5.0-7.0) 04/18/18 05:25 Ur Specific [place] 1.040 (1.003-1.030) H 04/18/18 05:25 Urine Protein <15 mg/dl mg/dL (Negative) 04/18/18 05:25 Urine Glucose (UA) Neg mg/dL (Negative) 04/18/18 05:25 Urine Ketones Tr mg/dL (Negative) 04/18/18 05:25 Urine Blood Neg (Negative) 04/18/18 05:25 Urine Nitrite Neg (Negative) 04/18/18 05:25 Urine Bilirubin Neg (Negative) 04/18/18 05:25 Urine Urobilinogen < 2.0 mg/dL (<2.0) 04/18/18 05:25 Ur Leukocyte Esterase Neg (Negative) 04/18/18 05:25 Urine WBC (Auto) 1.0 /HPF (0.0-6.0) 04/18/18 05:25 Urine RBC (Auto) 2.0 /HPF (0.0-6.0) 04/18/18 05:25 Urine Mucus Few /HPF 04/18/18 05:25
[2018-04-19] MEDS: DUONEB *Not for PRN Use IH SCH ×3 (09:53→20:24)
[2018-04-19] MEDS: LOVENOX SUB-Q SCH (13:29)
[2018-04-19] MEDS: SODIUM CHLORIDE FLUSH SYRINGE 10 ML IV SCH ×2 (13:30→21:28)
[2018-04-19] MEDS: ZITHROMAX PO SCH (21:18)
[2018-04-19] MEDS: ROCEPHIN/NS 1 GM/50 ML 1 GM/50 ML BAG IV SCH (21:19)
[2018-04-20 05:44] LABS: Basophils # (Auto) 0.1 K/mm3 (0.0-0.1); Basophils % (Auto) 0.6 % (0.0-1.8); Eosinophils # (Auto) 0.2 K/mm3 (0.0-0.4); Eosinophils % (Auto) 1.8 % (0.0-4.3); Hematocrit 41.8 % (35.5-45.6); Hemoglobin 14.4 gm/dl (11.8-15.2); Mean Corpuscular HGB Conc 34 % (32-34); Mean Corpuscular Hemoglobin 36 pg (28-32); Mean Corpuscular Volume 106 fl (84-94); Monocytes # (Auto) 1.5 K/mm3 (0.0-0.8); Monocytes % (Auto) 15.1 % (0.0-7.3); Platelet Count 433 K/mm3 (140-440); Red Blood Count 3.96 M/mm3 (3.65-5.03); Red Cell Distribution Width 19.2 % (13.2-15.2)
[2018-04-20 05:59] LABS: BUN/Creatinine Ratio 10; Blood Urea Nitrogen 4 mg/dL (9-20); Calcium 6.4 mg/dL (8.4-10.2); Hemolysis Index 8
[2018-04-20] MEDS ORDERED: K-DUR PO ONE ×3 (06:12→16:00)
[2018-04-20] MEDS: DUONEB *Not for PRN Use IH SCH ×4 (09:10→19:49)
[2018-04-20] MEDS: LOVENOX SUB-Q SCH (09:35)
[2018-04-20] MEDS: SODIUM CHLORIDE FLUSH SYRINGE 10 ML IV SCH ×2 (09:35→21:45)
--- NOTE | 2018-04-20 11:07 | Progress Note ---
Assessment and Plan Assessment and plan: Sepsis. Etiology secondary to pneumonia. We will follow-up blood and sputum cultures. Continue IV antibiotics. Follow lactate levels Bilateral community-acquired pneumonia. Continue IV antibiotics and follow-up serial chest x-ray. Tobacco abuse. Patient will be counseled on tobacco cessation. Hypokalemia. Replete potassium. History Interval history: No new issues overnight. Hospitalist Physical - Constitutional Vitals: Temp Pulse Resp BP Pulse Ox 98.5 F 99 H 18 146/101 97 04/19/18 23:45 04/20/18 09:10 04/20/18 09:10 04/19/18 23:45 04/19/18 23:45 General appearance: Present: no acute distress, well-nourished - EENT Eyes: Present: PERRL, EOM intact ENT: hearing intact, clear oral mucosa, dentition normal - Neck Neck: Present: supple, normal ROM - Respiratory Respiratory effort: normal Respiratory: bilateral: CTA, diminished, rhonchi - Cardiovascular Rhythm: regular Heart Sounds: Present: S1 & S2. Absent: gallop, rub - Extremities Extremities: no ischemia, No edema, Full ROM - Abdominal General gastrointestinal: soft, non-tender, non-distended, normal bowel sounds - Integumentary Integumentary: Present: clear, warm, dry - Neurologic Neurologic: CNII-XII intact, moves all extremities Results - Labs CBC & Chem 7: 04/20/18 04:53 04/20/18 04:53 Labs: Laboratory Last Values WBC 9.6 K/mm3 (4.5-11.0) 04/20/18 04:53 RBC 3.96 M/mm3 (3.65-5.03) 04/20/18 04:53 Hgb 14.4 gm/dl (11.8-15.2) 04/20/18 04:53 Hct 41.8 % (35.5-45.6) 04/20/18 04:53 MCV 106 fl (84-94) H 04/20/18 04:53 MCH 36 pg (28-32) H 04/20/18 04:53 MCHC 34 % (32-34) 04/20/18 04:53 RDW 19.2 % (13.2-15.2) H 04/20/18 04:53 Plt Count 433 K/mm3 (140-440) 04/20/18 04:53 Lymph % (Auto) 10.0 % (13.4-35.0) L 04/20/18 04:53 [place] % (Auto) 15.1 % (0.0-7.3) H 04/20/18 04:53 Eos % (Auto) 1.8 % (0.0-4.3) 04/20/18 04:53 Baso % (Auto) 0.6 % (0.0-1.8) 04/20/18 04:53 Lymph # 1.0 K/mm3 (1.2-5.4) L 04/20/18 04:53 [place] # 1.5 K/mm3 (0.0-0.8) H 04/20/18 04:53 Eos # 0.2 K/mm3 (0.0-0.4) 04/20/18 04:53 Baso # 0.1 K/mm3 (0.0-0.1) 04/20/18 04:53 Seg Neutrophils % 72.5 % (40.0-70.0) H 04/20/18 04:53 Seg Neutrophils # 7.0 K/mm3 (1.8-7.7) 04/20/18 04:53 Sodium 140 mmol/L (137-145) 04/20/18 04:53 Potassium 2.7 mmol/L (3.6-5.0) L* 04/20/18 04:53 Chloride 108.1 mmol/L (98-107) H 04/20/18 04:53 Carbon Dioxide 22 mmol/L (22-30) 04/20/18 04:53 Anion Gap 13 mmol/L 04/20/18 04:53 BUN 4 mg/dL (9-20) L 04/20/18 04:53 Creatinine 0.4 mg/dL (0.8-1.5) L 04/20/18 04:53 Estimated GFR > 60 ml/min 04/20/18 04:53 BUN/Creatinine Ratio 10 % 04/20/18 04:53 Glucose 86 mg/dL (75-100) 04/20/18 04:53 Lactic Acid 1.30 mmol/L (0.7-2.0) 04/17/18 19:34 Calcium 6.4 mg/dL (8.4-10.2) L D 04/20/18 04:53 Total Bilirubin 1.50 mg/dL (0.1-1.2) H 04/17/18 21:38 AST 14 units/L (5-40) 04/17/18 21:38 ALT 5 units/L (7-56) L 04/17/18 21:38 Alkaline Phosphatase 61 units/L (35-129) 04/17/18 21:38 Troponin T < 0.010 ng/mL (0.00-0.029) 04/17/18 21:38 NT-Pro-B Natriuret Pep 156.6 pg/mL (0-900) 04/17/18 21:38 Total Protein 6.3 g/dL (6.3-8.2) 04/17/18 21:38 Albumin 2.9 g/dL (3.9-5) L 04/17/18 21:38 Albumin/Globulin Ratio 0.9 % 04/17/18 21:38 Lipase 30 units/L (13-60) 04/17/18 21:38 Urine Color Yellow (Yellow) 04/18/18 05:25 Urine Turbidity Clear (Clear) 04/18/18 05:25 Urine pH 6.0 (5.0-7.0) 04/18/18 05:25 Ur Specific [place] 1.040 (1.003-1.030) H 04/18/18 05:25 Urine Protein <15 mg/dl mg/dL (Negative) 04/18/18 05:25 Urine Glucose (UA) Neg mg/dL (Negative) 04/18/18 05:25 Urine Ketones Tr mg/dL (Negative) 04/18/18 05:25 Urine Blood Neg (Negative) 04/18/18 05:25 Urine Nitrite Neg (Negative) 04/18/18 05:25 Urine Bilirubin Neg (Negative) 04/18/18 05:25 Urine Urobilinogen < 2.0 mg/dL (<2.0) 04/18/18 05:25 Ur Leukocyte Esterase Neg (Negative) 04/18/18 05:25 Urine WBC (Auto) 1.0 /HPF (0.0-6.0) 04/18/18 05:25 Urine RBC (Auto) 2.0 /HPF (0.0-6.0) 04/18/18 05:25 Urine Mucus Few /HPF 04/18/18 05:25
[2018-04-20] MEDS: NACL 0.9% 1000 ML 1,000 ML IV SCH (13:36)
--- NOTE | 2018-04-20 15:43 | XRay Report ---
CHEST TWO VIEWS: 04/20/18 CLINICAL: Followup pneumonia. COMPARISON: 04/17/18 FINDINGS: Considering differences in technique, no significant change compared to the prior exam. Persistent right upper lobe masslike opacification extending to thickened lateral pleura. Persistent bibasal streaky lung opacities, likely atelectasis. The heart is normal size. Normal pulmonary vessels. No pleural effusion.No tubes or lines. IMPRESSION: No significant change.Right upper lobe pneumonia versus mass.
[2018-04-20] MEDS: ZITHROMAX PO SCH (21:44)
[2018-04-20] MEDS: ROCEPHIN/NS 1 GM/50 ML 1 GM/50 ML BAG IV SCH (21:44)
[2018-04-21] MEDS: NACL 0.9% 1000 ML 1,000 ML IV SCH (05:13)
[2018-04-21] MEDS: TESSALON PERLES PO PRN (05:13)
[2018-04-21 06:34] LABS: Hematocrit 46.7 % (35.5-45.6); Hemoglobin 15.8 gm/dl (11.8-15.2); Mean Corpuscular HGB Conc 34 % (32-34); Mean Corpuscular Hemoglobin 36 pg (28-32); Mean Corpuscular Volume 107 fl (84-94); Platelet Count 490 K/mm3 (140-440); Red Blood Count 4.38 M/mm3 (3.65-5.03); Red Cell Distribution Width 19.1 % (13.2-15.2)
[2018-04-21 07:01] LABS: BUN/Creatinine Ratio 7; Blood Urea Nitrogen 4 mg/dL (9-20); Calcium 8.7 mg/dL (8.4-10.2); Hemolysis Index 7
[2018-04-21] MEDS: DUONEB *Not for PRN Use IH SCH ×2 (07:37→13:34)
[2018-04-21 08:13] LABS: Basophils % (Manual) 0 % (0.0-1.8); Total Cells Counted 100
[2018-04-21 08:14] LABS: Anisocytosis 1+; Poikilocytosis 1+
[2018-04-21] MEDS: SODIUM CHLORIDE FLUSH SYRINGE 10 ML IV SCH (09:04)
[2018-04-21] MEDS: LOVENOX SUB-Q SCH (09:04)
--- NOTE | 2018-04-21 11:11 | Progress Note ---
Assessment and Plan Assessment and plan: Sepsis. Etiology secondary to pneumonia. We will follow-up blood and sputum cultures. Continue IV antibiotics. Follow lactate levels Bilateral community-acquired pneumonia. Continue IV antibiotics and follow-up serial chest x-ray. Tobacco abuse. Patient will be counseled on tobacco cessation. Hypokalemia. Replete potassium. Disposition. Anticipate discharge in a.m. History Interval history: No new issues overnight. Hospitalist Physical - Constitutional Vitals: Temp Pulse Resp BP Pulse Ox 98.5 F 84 18 154/99 98 04/21/18 05:07 04/21/18 07:37 04/21/18 07:37 04/21/18 05:07 04/21/18 05:07 General appearance: Present: no acute distress, well-nourished - EENT Eyes: Present: PERRL, EOM intact ENT: hearing intact, clear oral mucosa, dentition normal - Neck Neck: Present: supple, normal ROM - Respiratory Respiratory effort: normal Respiratory: bilateral: CTA - Cardiovascular Rhythm: regular Heart Sounds: Present: S1 & S2. Absent: gallop, rub - Extremities Extremities: no ischemia, No edema, Full ROM - Abdominal General gastrointestinal: soft, non-tender, non-distended, normal bowel sounds - Integumentary Integumentary: Present: clear, warm, dry - Neurologic Neurologic: CNII-XII intact, moves all extremities Results - Labs CBC & Chem 7: 04/21/18 05:54 04/21/18 05:54 Labs: Laboratory Last Values WBC 9.5 K/mm3 (4.5-11.0) 04/21/18 05:54 RBC 4.38 M/mm3 (3.65-5.03) 04/21/18 05:54 Hgb 15.8 gm/dl (11.8-15.2) H 04/21/18 05:54 Hct 46.7 % (35.5-45.6) H 04/21/18 05:54 MCV 107 fl (84-94) H 04/21/18 05:54 MCH 36 pg (28-32) H 04/21/18 05:54 MCHC 34 % (32-34) 04/21/18 05:54 RDW 19.1 % (13.2-15.2) H 04/21/18 05:54 Plt Count 490 K/mm3 (140-440) H 04/21/18 05:54 Lymph % (Auto) 10.0 % (13.4-35.0) L 04/20/18 04:53 [place] % (Auto) Food And Drug Inspector 04/21/18 05:54 Eos % (Auto) 1.8 % (0.0-4.3) 04/20/18 04:53 Baso % (Auto) 0.6 % (0.0-1.8) 04/20/18 04:53 Lymph # 1.0 K/mm3 (1.2-5.4) L 04/20/18 04:53 [place] # 1.5 K/mm3 (0.0-0.8) H 04/20/18 04:53 Eos # 0.2 K/mm3 (0.0-0.4) 04/20/18 04:53 Baso # 0.1 K/mm3 (0.0-0.1) 04/20/18 04:53 Add Manual Diff Complete 04/21/18 05:54 Total Counted 100 04/21/18 05:54 Seg Neutrophils % 72.5 % (40.0-70.0) H 04/20/18 04:53 Seg Neuts % (Manual) 72.0 % (40.0-70.0) H 04/21/18 05:54 Band Neutrophils % 0 % 04/21/18 05:54 Lymphocytes % (Manual) 12.0 % (13.4-35.0) L 04/21/18 05:54 Reactive Lymphs % (Man) 0 % 04/21/18 05:54 Monocytes % (Manual) 14.0 % (0.0-7.3) H 04/21/18 05:54 Eosinophils % (Manual) 2.0 % (0.0-4.3) 04/21/18 05:54 Basophils % (Manual) 0 % (0.0-1.8) 04/21/18 05:54 Metamyelocytes % 0 % 04/21/18 05:54 Myelocytes % 0 % 04/21/18 05:54 Promyelocytes % 0 % 04/21/18 05:54 Blast Cells % 0 % 04/21/18 05:54 Nucleated RBC % Not Reportable 04/21/18 05:54 Seg Neutrophils # 7.0 K/mm3 (1.8-7.7) 04/20/18 04:53 Seg Neutrophils # Man 6.8 K/mm3 (1.8-7.7) 04/21/18 05:54 Band Neutrophils # 0.0 K/mm3 04/21/18 05:54 Lymphocytes # (Manual) 1.1 K/mm3 (1.2-5.4) L 04/21/18 05:54 Abs React Lymphs (Man) 0.0 K/mm3 04/21/18 05:54 Monocytes # (Manual) 1.3 K/mm3 (0.0-0.8) H 04/21/18 05:54 Eosinophils # (Manual) 0.2 K/mm3 (0.0-0.4) 04/21/18 05:54 Basophils # (Manual) 0.0 K/mm3 (0.0-0.1) 04/21/18 05:54 Metamyelocytes # 0.0 K/mm3 04/21/18 05:54 Myelocytes # 0.0 K/mm3 04/21/18 05:54 Promyelocytes # 0.0 K/mm3 04/21/18 05:54 Blast Cells # 0.0 K/mm3 04/21/18 05:54 WBC Morphology Not Reportable 04/21/18 05:54 Hypersegmented Neuts Not Reportable 04/21/18 05:54 Hyposegmented Neuts Not Reportable 04/21/18 05:54 Hypogranular Neuts Not Reportable 04/21/18 05:54 Smudge Cells Not Reportable 04/21/18 05:54 Toxic Granulation Not Reportable 04/21/18 05:54 Toxic Vacuolation Not Reportable 04/21/18 05:54 Dohle Bodies Not Reportable 04/21/18 05:54 Pel[place]-Huet Anomaly Not Reportable 04/21/18 05:54 Mekhi Rods Not Reportable 04/21/18 05:54 Platelet Estimate Appears normal 04/21/18 05:54 Clumped Platelets Not Reportable 04/21/18 05:54 Plt Clumps, EDTA Not Reportable 04/21/18 05:54 Large Platelets Not Reportable 04/21/18 05:54 Giant Platelets Not Reportable 04/21/18 05:54 Platelet Satelliting Not Reportable 04/21/18 05:54 Plt Morphology Comment Not Reportable 04/21/18 05:54 RBC Morphology Not Reportable 04/21/18 05:54 Dimorphic RBCs Not Reportable 04/21/18 05:54 Polychromasia Not Reportable 04/21/18 05:54 Hypochromasia Not Reportable 04/21/18 05:54 Poikilocytosis 1+ 04/21/18 05:54 Anisocytosis 1+ 04/21/18 05:54 Microcytosis Not Reportable 04/21/18 05:54 Macrocytosis Not Reportable 04/21/18 05:54 Spherocytes Not Reportable 04/21/18 05:54 Pappenheimer Bodies Not Reportable 04/21/18 05:54 Sickle Cells Not Reportable 04/21/18 05:54 Target Cells Not Reportable 04/21/18 05:54 Tear Drop Cells Not Reportable 04/21/18 05:54 Ovalocytes Not Reportable 04/21/18 05:54 Helmet Cells Not Reportable 04/21/18 05:54 [place] Bodies Not Reportable 04/21/18 05:54 [place] Rings Not Reportable 04/21/18 05:54 [place] Cells Not Reportable 04/21/18 05:54 Bite Cells Not Reportable 04/21/18 05:54 Crenated Cell Not Reportable 04/21/18 05:54 Elliptocytes Not Reportable 04/21/18 05:54 Acanthocytes (Spur) Not Reportable 04/21/18 05:54 Rouleaux Not Reportable 04/21/18 05:54 Hemoglobin C Crystals Not Reportable 04/21/18 05:54 Schistocytes Not Reportable 04/21/18 05:54 Malaria parasites Not Reportable 04/21/18 05:54 Tor Bodies Not Reportable 04/21/18 05:54 Hem Pathologist Commnt No 04/21/18 05:54 Sodium 138 mmol/L (137-145) 04/21/18 05:54 Potassium 4.7 mmol/L (3.6-5.0) D 04/21/18 05:54 Chloride 102.8 mmol/L (98-107) 04/21/18 05:54 Carbon Dioxide 24 mmol/L (22-30) 04/21/18 05:54 Anion Gap 16 mmol/L 04/21/18 05:54 BUN 4 mg/dL (9-20) L 04/21/18 05:54 Creatinine 0.6 mg/dL (0.8-1.5) L 04/21/18 05:54 Estimated GFR > 60 ml/min 04/21/18 05:54 BUN/Creatinine Ratio 7 % 04/21/18 05:54 Glucose 95 mg/dL (75-100) 04/21/18 05:54 Lactic Acid 1.30 mmol/L (0.7-2.0) 04/17/18 19:34 Calcium 8.7 mg/dL (8.4-10.2) D 04/21/18 05:54 Total Bilirubin 1.50 mg/dL (0.1-1.2) H 04/17/18 21:38 AST 14 units/L (5-40) 04/17/18 21:38 ALT 5 units/L (7-56) L 04/17/18 21:38 Alkaline Phosphatase 61 units/L (35-129) 04/17/18 21:38 Troponin T < 0.010 ng/mL (0.00-0.029) 04/17/18 21:38 NT-Pro-B Natriuret Pep 156.6 pg/mL (0-900) 04/17/18 21:38 Total Protein 6.3 g/dL (6.3-8.2) 04/17/18 21:38 Albumin 2.9 g/dL (3.9-5) L 04/17/18 21:38 Albumin/Globulin Ratio 0.9 % 04/17/18 21:38 Lipase 30 units/L (13-60) 04/17/18 21:38 Urine Color Yellow (Yellow) 04/18/18 05:25 Urine Turbidity Clear (Clear) 04/18/18 05:25 Urine pH 6.0 (5.0-7.0) 04/18/18 05:25 Ur Specific [place] 1.040 (1.003-1.030) H 04/18/18 05:25 Urine Protein <15 mg/dl mg/dL (Negative) 04/18/18 05:25 Urine Glucose (UA) Neg mg/dL (Negative) 04/18/18 05:25 Urine Ketones Tr mg/dL (Negative) 04/18/18 05:25 Urine Blood Neg (Negative) 04/18/18 05:25 Urine Nitrite Neg (Negative) 04/18/18 05:25 Urine Bilirubin Neg (Negative) 04/18/18 05:25 Urine Urobilinogen < 2.0 mg/dL (<2.0) 04/18/18 05:25 Ur Leukocyte Esterase Neg (Negative) 04/18/18 05:25 Urine WBC (Auto) 1.0 /HPF (0.0-6.0) 04/18/18 05:25 Urine RBC (Auto) 2.0 /HPF (0.0-6.0) 04/18/18 05:25 Urine Mucus Few /HPF 04/18/18 05:25
--- NOTE | 2018-04-21 11:19 | Event Note ---
Date: 04/21/18 Asked to review imaging based on radiology read. It does not appear that the patient has a mass and he would not develop a mass in 48-72 hours. Appears to be residual pneumonia inside of a bulla. Pt had a CT several days ago that shows this. His left lower lobe is improving and suspect the right will follow. Clinically he has improved. Do not see the need for biopsy at this time. patient can follow up with his PCP.
[2018-04-21] MEDS ORDERED: LEVAQUIN 750MG/150ML 750 MG/150 ML BAG IV SCH (12:00)
--- NOTE | 2018-04-21 15:27 | Discharge Summary ---
Providers - Providers Date of Admission: 04/17/18 23:02 Date of discharge: 04/21/18 Attending physician: HEDY HOROWITZ 04/21/18 07:30 Consult to Physician [CONS] Routine Comment: Consulting Provider: SANCHO CROCKETT Physician Instructions: Reason For Exam: RUL infiltrate vs mass Primary care physician: CONE EXAMINER Hospitalization Reason for admission: pna Condition: Serious Hospital course: 52 -year-old man with a known medical history [facility] with complaint of cough productive of yellow phlegm, fever. Complained of pain in his left chest with breathing and coughing. Denies any weight loss. Pt. underwent evaluation with CT scan that revealed Bilateral pneumonia. Pt was admitted with dx of Sepsis with Etiology secondary to khurram pneumonia. Follow-up blood and sputum cultures were negative. Pt. received IV antibiotics with significant improvement. D/c time 32 min. Disposition: DC- TO HOME OR SELFCARE - Discharge Diagnoses (1) Sepsis Status: Acute (2) Pneumonia Status: Acute Qualifiers: Pneumonia type: due to unspecified organism Laterality: bilateral Lung location: lower lobe of lung Qualified Code(s): J18.1 - Lobar pneumonia, unspecified organism Core Measure Documentation - Palliative Care Palliative Care/ Comfort Measures: Not Applicable - Core Measures Any of the following diagnoses?: none Exam - Constitutional Vitals: Temp Pulse Resp BP Pulse Ox 98.5 F 89 20 173/102 96 04/21/18 11:16 04/21/18 11:16 04/21/18 11:16 04/21/18 11:16 04/21/18 11:16 General appearance: Present: no acute distress, well-nourished - EENT Eyes: Present: PERRL ENT: hearing intact, clear oral mucosa - Neck Neck: Present: supple, normal ROM - Respiratory Respiratory effort: normal Respiratory: bilateral: CTA - Cardiovascular Heart Sounds: Present: S1 & S2. Absent: rub, click - Extremities Extremities: pulses symmetrical, No edema Peripheral Pulses: within normal limits - Abdominal General gastrointestinal: Present: soft, non-tender, non-distended, normal bowel sounds Male genitourinary: Present: normal - Integumentary Integumentary: Present: clear, warm, dry - Musculoskeletal Musculoskeletal: gait normal, strength equal bilaterally - Psychiatric Psychiatric: appropriate mood/affect, intact judgment & insight - Neurologic Neurologic: CNII-XII intact, moves all extremities Plan Activity: no restrictions Weight Bearing Status: Full Weight Bearing Diet: regular Follow up with: PRIMARY CARE, [Primary Care Provider] - 3-5 Days
[2018-04-21 18:02] VITALS: BP 159/95
== END 2018-04-21 18:25 | disposition home or self-care (01) | DRG 871 ==
LOC: ED 18:53 → 3A 23:02
PROVIDERS: ADMIT Internal Medicine; ATTEND Hospitalist
DX: A41.9 Sepsis, unspecified organism (principal); J18.9 Pneumonia, unspecified organism; E86.0 Dehydration; F17.200 Nicotine dependence, unspecified, uncomplicated; E87.6 Hypokalemia; Z82.49 Family history of ischemic heart disease and other diseases of the circulatory system
CPT/HCPCS: 36415; 71045; 71046; 71260; 80048; 80053; 81001; 82140; 83690; 83880; 84484; 85007; 85025; 87040; 90732; 93005; 93010; 94640; 94644; 94760; 96365; 96375; J0456; J0696; J1650; J1956; J2270; J2405; J7030; J7050; Q9967

== ENCOUNTER 2019-11-07 09:54 | Outpatient (CLI) | payer BC ==
[2019-11-07 10:41] LABS: Blood Urea Nitrogen 5 mg/dL (9-20)
--- NOTE | 2019-11-07 13:17 | Cat Scan Report ---
CT CHEST WITH CONTRAST HISTORY: Aspergillosis and cavitary pneumonia. COMPARISON: 08/08/2019 and 04/23/2019 TECHNIQUE: Routine chest CT exam performed following intravenous contrast administration.. All CT sc ans at this location are performed using CT dose reduction for ALARA by means of automated exposure c ontrol. CONTRAST: 100 mL Omnipaque 300. Consent was obtained prior to the administration of contrast. FINDINGS: CT CHEST: Lungs: Chronic right upper lobe are stable collapse with exuberant pleural thickening and additional parenchymal scarring are not significantly changed since the last exam. A stable 8.6 cm collection of air in the right upper lobe. A very small walled off right pleural effusion. Left pleural effusion h as resolved. Stable parenchymal scarring of the left upper lobe. No mass, nodules or new cavitations. Heart and Pericardium: No significant abnormality. Vasculature: No significant abnormality. Lymphatics: Mild bilateral hilar lymphadenopathy is unchanged. Osseous Structures: No aggressive appearing osseous lesions. Additional Findings: None IMPRESSION: 1. Stable chronic right upper lobe partial collapse. 2. Stable bilateral upper lobe lung scarring. 3. No new findings. Signer Name: Tre Hall MD Signed: 11/07/2019 1:13 PM Workstation Name: [id number]
== END 2019-11-07 09:55 | disposition home or self-care (01) ==
LOC: CT 09:54
PROVIDERS: ATTEND Internal Medicine Critical Care Medicine
DX: J98.19 Other pulmonary collapse (principal); J90 Pleural effusion, not elsewhere classified; J98.4 Other disorders of lung; R59.1 Generalized enlarged lymph nodes; J18.9 Pneumonia, unspecified organism; R91.1 Solitary pulmonary nodule; B44.9 Aspergillosis, unspecified
CPT/HCPCS: 36415; 71260; 82565; 84520; Q9967

== ENCOUNTER 2020-04-10 10:56 | Outpatient (CLI) | payer OTHER ==
--- NOTE | 2020-04-10 14:14 | XRay Report ---
CHEST 2 VIEWS INDICATION: CHEST PAIN. COMPARISON: 08/11/2019 FINDINGS: Support devices: None. Heart: Within normal limits. Lungs/pleura: Small bilateral pleural effusions have resolved since the previous exam. Bilateral pleu ral-parenchymal disease which is most pronounced in the right upper lobe is again seen and slightly i mproved. No evidence for mass. No pneumothorax. Additional findings: None. IMPRESSION: Mild improvement in the bilateral pleural-parenchymal disease. Small pleural effusions have resolved since the previous exam. No acute process is noted. Signer Name: Nic Rodriguez Jr, MD Signed: 04/10/2020 2:09 PM Workstation Name: [id number]
== END 2020-04-10 10:57 | disposition home or self-care (01) ==
LOC: XRAY 10:56
PROVIDERS: ATTEND Internal Medicine
DX: J98.4 Other disorders of lung (principal)
CPT/HCPCS: 71046

== ENCOUNTER 2020-08-25 13:49 | Outpatient (CLI) | payer OTHER ==
[2020-08-25] MEDS ORDERED: ALBUTEROL 2.5 MG/3 ML NEBU IH ONE (14:27)
== END 2020-08-25 13:50 | disposition home or self-care (01) ==
LOC: PF 13:49
PROVIDERS: ATTEND Internal Medicine
DX: R06.02 Shortness of breath (principal); R91.8 Other nonspecific abnormal finding of lung field
CPT/HCPCS: 94060; 94640; A9270

== ENCOUNTER 2022-03-09 22:19 | Emergency (ER) | payer MEDICARE ==
[2022-03-10] MEDS ORDERED: PREGABALIN 50 MG CAP PO ONE (03:00)
[2022-03-10] MEDS ORDERED: KETOROLAC 60 MG/2 ML INJ IM ONE (03:00)
[2022-03-10] MEDS ORDERED: AMITRIPTYLINE 25 MG TAB PO ONE (03:01)
--- NOTE | 2022-03-10 06:52 | Emergency Department Report ---
ED Extremity Problem HPI - General Chief complaint: Extremity Problem,Nontraumatic Stated complaint: NEUROPATHY Source: patient, EMS Mode of arrival: Stretcher Limitations: No Limitations - History of Present Illness Initial comments: Patient is a 56-year-old -[place] male with a history of two-mktybcu-duarnvnar diabetes with chronic diabetic neuropathy, hypertension, h yperlipidemia and chronic osteoarthritis who presents to the ED with acute exacerbation of his chronic pain characterized by bilateral hand and foot as well as ankle pain for the last 2 months, worse in the last 5 days. Patient states that he previously took medications such as gabapentin but ran out of the medications and his primary care physician at the [facility] has not refilled his prescriptions. Patient states that the pain is constant and persistent and that he is unable to sleep. Patient denies dizziness, syncope, chest pain or shortness of breath, traumatic injury, nausea and vomiting, fever, chills, back pain, bilateral upper and lower extremity weakness, neck pain, change in vision or heavy lifting. MD Complaint: extremity pain (Bilateral feet and hand pain with tingling sensation), joint paint (Bilateral ankle, foot and hand pain), other (Exacerbation of chronic diabetic neuropathy) -: Gradual, year(s) (2) Location: upper extremity (Bilateral hands), bilateral lower extremity (Bilateral bilateral ankles and foot) History of Same: Yes (Chronic osteoarthritis; chronic diabetic neuropathy) -: Yes arthralgia (Polyarticular joint pain; bilateral lower extremity neuropathic pain), No fever, No associated dyspnea, No associated chest pain Radiation: distal Severity scale (0 -10): 10 Quality: aching, sharp Consistency: constant Improves with: nothing Worsens with: weight bearing, walking, exertion, palpation Associated Symptoms: denies other symptoms, myalgias, arthralgias. denies: chest pain, shortness of breath, fever, rash - Related Data Home Medications Medication Instructions Recorded Confirmed Last Taken Clotrimazole 1% [Lotrimin 1%] 1 applic TP BID 01/06/22 01/06/22 Unknown Folic Acid 1 mg PO QDAY 01/06/22 01/06/22 Unknown Lidocaine [Aspercreme Lidocaine] 1 patch TP Q12H 01/06/22 01/06/22 Unknown Venlafaxine HCl [Venlafaxine ER] 225 mg PO QDAY 01/06/22 01/06/22 Unknown amLODIPine 5 mg PO DAILY 01/06/22 01/06/22 Unknown Previous Rx's Medication Instructions Recorded Last Taken Type Famotidine [Pepcid] 20 mg PO QHS #30 tablet 01/07/22 Unknown Rx Furosemide [Lasix] 20 mg PO QDAY #30 tablet 01/07/22 Unknown Rx Magnesium 200 mg PO DAILY #7 01/07/22 Unknown Rx Metoprolol [Lopressor TAB] 12.5 mg PO BID #60 tablet 01/07/22 Unknown Rx Potassium Chloride [K-Dur] 20 meq PO QDAY #7 tablet 01/07/22 Unknown Rx Naproxen 500 mg PO Q12H PRN #30 tab 03/10/22 Unknown Rx Pregabalin [Lyrica] 150 mg PO QDAY #60 cap 03/10/22 Unknown Rx methOCARBAMOL [Robaxin TAB] 750 mg PO Q8H PRN #30 tab 03/10/22 Unknown Rx predniSONE [Deltasone] 20 mg PO QDAY #7 tablet 03/10/22 Unknown Rx traMADoL [Ultram] 50 mg PO Q6HR PRN #12 tablet 03/10/22 Unknown Rx Allergies Allergy/AdvReac Type Severity Reaction Status Date / Time No Known Allergies Allergy Verified 01/06/22 14:45 ED Review of Systems ROS: Stated complaint: NEUROPATHY Other details as noted in HPI Constitutional: denies: chills, fever Eyes: denies: eye pain, eye discharge, vision change ENT: denies: ear pain, throat pain Respiratory: denies: cough, shortness of breath, wheezing Cardiovascular: denies: chest pain, palpitations Endocrine: no symptoms reported Gastrointestinal: denies: abdominal pain, nausea, diarrhea Genitourinary: denies: urgency, dysuria Musculoskeletal: arthralgia (Bilateral ankle, foot and hand pain). denies: back pain, joint swelling Skin: denies: rash, lesions Neurological: denies: headache, weakness, paresthesias Psychiatric: denies: anxiety, depression Hematological/Lymphatic: denies: easy bleeding, easy bruising ED Past Medical Hx - Past Medical History Hx Hypertension: Yes Hx Heart Attack/AMI: No Hx Congestive Heart Failure: No Hx Diabetes: Yes Hx Deep Vein Thrombosis: No Hx Sickle Cell Disease: No Hx Arthritis: Yes Hx Asthma: No Hx COPD: No Hx HIV: No Additional medical history: Diabetic neuropathy - Surgical History Hx Coronary Stent: No Hx Pacemaker: No Hx Internal Defibrillator: No - Social History Smoking Status: Former Smoker - Medications Home Medications: Home Medications Medication Instructions Recorded Confirmed Last Taken Type Clotrimazole 1% [Lotrimin 1%] 1 applic TP BID 01/06/22 01/06/22 Unknown History Folic Acid 1 mg PO QDAY 01/06/22 01/06/22 Unknown History Lidocaine [Aspercreme Lidocaine] 1 patch TP Q12H 01/06/22 01/06/22 Unknown H istory Venlafaxine HCl [Venlafaxine ER] 225 mg PO QDAY 01/06/22 01/06/22 Unknown History amLODIPine 5 mg PO DAILY 01/06/22 01/06/22 Unknown History Famotidine [Pepcid] 20 mg PO QHS #30 tablet 01/07/22 Unknown Rx Furosemide [Lasix] 20 mg PO QDAY #30 tablet 01/07/22 Unknown Rx Magnesium 200 mg PO DAILY #7 01/07/22 Unknown Rx Metoprolol [Lopressor TAB] 12.5 mg PO BID #60 tablet 01/07/22 Unknown Rx Potassium Chloride [K-Dur] 20 meq PO QDAY #7 tablet 01/07/22 Unknown Rx Naproxen 500 mg PO Q12H PRN #30 tab 03/10/22 Unknown Rx Pregabalin [Lyrica] 150 mg PO QDAY #60 cap 03/10/22 Unknown Rx methOCARBAMOL [Robaxin TAB] 750 mg PO Q8H PRN #30 tab 03/10/22 Unknown Rx predniSONE [Deltasone] 20 mg PO QDAY #7 tablet 03/10/22 Unknown Rx traMADoL [Ultram] 50 mg PO Q6HR PRN #12 tablet 03/10/22 Unknown Rx ED Physical Exam - General Limitations: No Limitations General appearance: alert, in no apparent distress - Head Head exam: Present: atraumatic, normocephalic, normal inspection - Eye Eye exam: Present: normal appearance, PERRL, EOMI Pupils: Present: normal accommodation - ENT ENT exam: Present: normal exam, normal orophraynx, mucous membranes moist, TM's normal bilaterally, normal external ear exam - Neck Neck exam: Present: normal inspection, full ROM. Absent: tenderness - Respiratory Respiratory exam: Present: normal lung sounds bilaterally. Absent: respiratory distress, wheezes, rales, chest wall tenderness, accessory muscle use, decreased breath sounds, prolonged expiratory - Cardiovascular Cardiovascular Exam: Present: regular rate, normal rhythm, normal heart sounds. Absent: systolic murmur, diastolic murmur, rubs, gallop - GI/Abdominal GI/Abdominal exam: Present: soft, normal bowel sounds. Absent: tenderness, guarding, rebound, hyperactive bowel sounds, hypoactive bowel sounds, organomegaly, mass - Extremities Exam Extremities exam: Present: normal inspection, full ROM, tenderness (Palpable tenderness of bilateral ankle joint, foot and bilateral hands), normal capillary refill - Back Exam Back exam: Present: normal inspection, full ROM. Absent: tenderness, CVA tende rness (R), CVA tenderness (L), muscle spasm, paraspinal tenderness, vertebral tenderness - Neurological Exam Neurological exam: Present: alert, oriented X3, CN II-XII intact, normal gait, reflexes normal - Psychiatric Psychiatric exam: Present: normal affect, normal mood - Skin Skin exam: Present: warm, dry, intact, normal color. Absent: rash ED Course Vital Signs 03/09/22 03/10/22 22:20 03:54 Temperature 98 F Pulse Rate 104 H Respiratory 16 16 Rate Blood Pressure 130/88 [Right] O2 Sat by Pulse 98 Oximetry ED Medical Decision Making - Medical Decision Making This is a 56-year-old -[place] male with a history of [id number] diabetes with chronic diabetic neuropathy, hypertension, hyperlipidemia and chronic osteoarthritis who presents to the ED with acute exacerbation of his chronic pain characterized by bilateral hand and foot as well as ankle pain for the last 2 months, worse in the last 5 days. Patient states that he previously took medications such as gabapentin but ran out of the medications and his primary care physician at the [facility] has not refilled his prescriptions. Patient states that the pain is constant and persistent and that he is unable to sleep. In the ED, patient is alert and oriented x3 and is not in any distress. Patient was treated for pain in the ED and on reevaluation, patient's pain is well controlled medication. Patient will discharge home on medication and advised to follow-up with his primary care physician in 7 to 10 days for reevaluation or return to the ED immediately if symptoms get worse. - Differential Diagnosis Chronic pain; chronic osteoarthritis; diabetic neuropathy; Critical care attestation.: If time is entered above; I have spent that time in minutes in the direct care of this critically ill patient, excluding procedure time. ED Disposition Clinical Impression: Chronic pain syndrome, Chronic osteoarthritis, Chronic painful diabetic neuropathy Disposition: HOME / SELF CARE / HOMELESS Is pt being admited?: No Does the pt Need Aspirin: No Condition: Stable Instructions: Diabetes Mellitus Type 2 in Adults (ED), Neuropathic Pain, Type 2 Diabetes Mellitus, Self Care, Adult, [id number], Diabetic Neuropathy, Peripheral Neuropathy, Osteoarthritis Additional Instructions: Take medication with food, drink plenty of fluids, follow-up with your primary care physician in 7 to 10 days for reevaluation. Return to the ED immediately if symptoms get worse. Prescriptions: predniSONE [Deltasone] 20 mg PO QDAY #7 tablet Pregabalin [Lyrica] 150 mg PO QDAY #60 cap Naproxen 500 mg PO Q12H PRN #30 tab PRN Reason: Pain , Severe (7-10) methOCARBAMOL [Robaxin TAB] 750 mg PO Q8H PRN #30 tab PRN Reason: Muscle Spasm traMADoL [Ultram] 50 mg PO Q6HR PRN #12 tablet PRN Reason: Pain Referrals: [facility] [Provider Group] - 3-5 Days Time of Disposition: 06:55 Print Language: YORUBA
[2022-03-10 07:25] VITALS: BP 142/85
== END 2022-03-10 07:25 | disposition home or self-care (01) ==
LOC: ED 22:19
DX: G89.4 Chronic pain syndrome (principal); M19.90 Unspecified osteoarthritis, unspecified site; E11.40 Type 2 diabetes mellitus with diabetic neuropathy, unspecified; Z79.899 Other long term (current) drug therapy
CPT/HCPCS: 96372; 99283; J1885